=== PATIENT | female | born 1965 | race African-American/Black ===

== ENCOUNTER 2021-09-27 15:51 | Emergency (ER) | payer OTHER ==
[~2021-09-27] VITALS: Ht 152.4 cm; Wt 52.2 kg
== END 2021-09-27 20:05 | disposition home or self-care (01) ==
LOC: ER 15:51
DX: R25.2 Cramp and spasm (principal); N18.9 Chronic kidney disease, unspecified; Z20.822 Contact with and (suspected) exposure to COVID-19; Z88.0 Allergy status to penicillin

== ENCOUNTER 2023-01-17 23:58 | Emergency (ER) | payer OTHER ==
[~2023-01-17] VITALS: Ht 157.5 cm; Wt 61.2 kg
[2023-01-18 03:38] LABS: HEMATOCRIT 30.3 % (36.0-45.00); HEMOGLOBIN 10.1 g/dL (12.0-15.00); MEAN CELL VOLUME 91.1 fL (80.00-100.00); MEAN CORPUSCULAR HEMOGLOBIN 30.3 pg (27.00-32.0); MEAN CORPUSCULAR HGB CONC 33.3 g/dl (32.0-36.0); PLATELET COUNT 266 K/uL (150-450); RED BLOOD COUNT 3.33 M/uL (4.00-6.00); RED CELL DISTRIBUTION WIDTH 14.1 % (11.5-14.5)
[2023-01-18 03:45] LABS: PH,URINE 5.5 (5.0-8.0); URINE APPEARANCE Clear; URINE BILIRRUBIN Negative (NEGATIVE); URINE BLOOD Negative; URINE COLOR Yellow; URINE GLUCOSE Negative (NEGATIVE); URINE LEUKOCYTE Trace; URINE NITRATE Negative; URINE PROTEIN Negative (NEGATIVE); URINE UROBILINOGEN 0.2 E.U./dl
[2023-01-18 03:49] LABS: URINE BACTERIA 138.4 uL (0.0-1933); URINE EPITHELIAL CELLS 3.8 uL (0.0-38.8); URINE RBC 2.4 uL (0.0-20.8); URINE WBC 26.8 uL (0.0-23.2)
[2023-01-18 03:51] LABS: ALBUMIN 3.9 gm/dL (3.4-5.0); BILIRUBIN TOTAL 0.29 mg/dL (0.3-1.2); CALCIUM 8.9 mg/dL (8.5-10.1); CREATININE SERUM 1.41 mg/dL (0.55-1.02); GFR 38.17; GLOBULINA 3.7 G/DL (2.4-3.5); POTASSIUM 4.16 mEq/L (3.5-5.1); TOTAL PROTEIN 7.6 gm/dL (6.4-8.2)
[2023-01-18 03:57] LABS: INR 0.97; PARTIAL THROMBOPLASTIN TIME 26.3 SECONDS (22.0-34.0); PROTHROMBIN TIME 10.2 SECONDS (9.0-11.5)
== END 2023-01-18 13:33 | disposition home or self-care (01) ==
LOC: ER 23:58
DX: R10.32 Left lower quadrant pain (principal); Z88.0 Allergy status to penicillin

== ENCOUNTER 2023-07-03 15:46 | Emergency (ER) | payer OTHER ==
[~2023-07-03] VITALS: Ht 152.4 cm; Wt 52.2 kg
[2023-07-03 20:37] LABS: HEMATOCRIT 33.7 % (36.0-45.00); HEMOGLOBIN 11.3 g/dL (12.0-15.00); MEAN CELL VOLUME 91.3 fL (80.00-100.00); MEAN CORPUSCULAR HEMOGLOBIN 30.6 pg (27.00-32.0); MEAN CORPUSCULAR HGB CONC 33.5 g/dl (32.0-36.0); PLATELET COUNT 247 K/uL (150-450)
[2023-07-03 20:39] LABS: PH,URINE 5.5 (5.0-8.0); URINE APPEARANCE Clear; URINE BILIRRUBIN Negative (NEGATIVE); URINE BLOOD Small; URINE COLOR Yellow; URINE GLUCOSE Negative (NEGATIVE); URINE LEUKOCYTE Small; URINE NITRATE Negative; URINE PROTEIN Negative (NEGATIVE); URINE UROBILINOGEN 0.2 E.U./dl
[2023-07-03 20:42] LABS: URINE BACTERIA 37.7 uL (0.0-1933); URINE EPITHELIAL CELLS 8.7 uL (0.0-38.8); URINE RBC 15.5 uL (0.0-20.8); URINE WBC 52.7 uL (0.0-23.2)
[2023-07-03 20:56] LABS: CALCIUM 9.2 mg/dL (8.5-10.1); CREATININE SERUM 1.65 mg/dL (0.55-1.02); GFR 31.73; POTASSIUM 3.97 mEq/L (3.5-5.1)
== END 2023-07-03 23:03 | disposition home or self-care (01) ==
LOC: ER 15:47
PROVIDERS: Nurse Practitioner Family
DX: R25.2 Cramp and spasm (principal); Z88.0 Allergy status to penicillin; R07.89 Other chest pain; D64.9 Anemia, unspecified; N18.30 Chronic kidney disease, stage 3 unspecified